=== PATIENT | female | born 1995 | race African-American/Black ===

== ENCOUNTER 2019-01-30 01:38 | Emergency (ER) | payer MEDICAID ==
[~2019-01-30] VITALS: Ht 180.3 cm; Wt 73.0 kg
[2019-01-30 01:43] VITALS: BP 101/46
== END 2019-01-30 03:16 | disposition left against medical advice (07) ==
LOC: ER 01:38
DX: R07.9 Chest pain, unspecified (principal); Z53.21 Procedure and treatment not carried out due to patient leaving prior to being seen by health care provider